=== PATIENT | female | born 1990 | race Caucasian/White ===

== ENCOUNTER 2021-12-07 09:31 | Emergency (ER) | payer OTHER ==
[2021-12-07 10:02] LABS: Absolute Neutrophil Ct (ANC) 6.84 x10^3/uL (1.4-6.9); Basophil (Absolute #) 0.02 x10^3/uL (0-0.4); Eosinophil (Absolute #) 0.09 x10^3/uL (0-0.5); Hemoglobin 13.8 g/dL (12.0-16.0); Lymphocyte (Absolute #) 1.58 x10^3/uL (1.0-4.6); Lymphocytes % 17.1 % (24.0-44.0); Mean Cell Volume 93.2 fL (78-100); Mean Corpuscular Hemoglobin 31.4 pg (26-32); Mean Corpuscular Hgb Concent. 33.7 g/dL (32-36); Mean Platelet Volume 9.7 fL (7.5-11.0); Monocyte (Absolute #) 0.66 x10^3/uL (0.0-1.3); Monocytes % 7.2 % (0.0-12.0); Neutrophil % 74.1 % (36.0-66.0); Platelet Count 249 x10^3/uL (150-450); Red Cell Distribution Width 11.7 % (11.5-14.0); White Blood Count 9.2 x10^3/uL (4.0-10.5)
[2021-12-07 10:26] LABS: INR 0.97 (0.8-3.0); PROTIME 10.3 SECONDS (9.4-12.5); PTT 29.1 SECONDS (25.1-36.5)
--- NOTE | 2021-12-07 10:26 | ERPHSYRPT ---
- History of Present Illness Source: patient Exam Limitations: no limitations Patient Subjective Stated Complaint: -9 weeks bleeding Triage Nursing Assessment: Patient ambulated back to ED and transferred self to bed. Patient A+O X3. Patient's skin pink, warm and dry. Patient complains of vaginal bleeding that started yesterday bright red blood. Patient is currently 9 weeks . Physician History: 31 yo wf 8wks w vaginal bleeding x1day. Bleeding is less than a period. Pt is pain free. She denies N/V/D/dysuria/hematuria/fever/cough. [id number] Timing/Duration: yesterday Activites at Onset: rest Quality: other (No pain) Onset Location: other (No pain) Pain Radiation: none Severity of Pain-Max: none Severity of Pain-Current: none Prior abdominal problems: none Sexual intercourse history: other (Pt is ) Modifying Factors: Improves With: nothing Associated Symptoms: , No abdominal pain, No fever, No chills, No diaphoresis, No nausea, No vomiting, No dysuria, No nocturia, No polyuria, No urinary frequency, No loss of bladder control, No lower back pain, No lumps, No mass, No swelling, No syncope, No vaginal discharge, No vaginal fluid leakage Allergies/Adverse Reactions: No Known Drug Allergies Allergy (Unverified 12/07/21 09:42) Home Medications: Mv-Mn/Iron/FA/Herbal/Digestive [ One Tablet] 1 tab PO DAILY 12/07/21 [History] Hx Influenza Vaccination/Date Given: No Hx Pneumococcal Vaccination/Date Given: No Travel Risk - International Travel Have you traveled outside of the country in past 3 weeks: No - Coronavirus Screening Are you exhibiting any of the following symptoms?: No - Vaccine Status Have you recieved a Covid-19 vaccination: No - Review of Systems Constitutional: No Symptoms Eyes: No Symptoms Ears, Nose, & Throat: No Symptoms Respiratory: No Symptoms Cardiac: No Symptoms Abdominal/Gastrointestinal: No Symptoms Genitourinary Symptoms: No Symptoms, Vaginal Bleeding Musculoskeletal: No Symptoms Skin: No Symptoms Neurological: No Symptoms Psychological: No Symptoms Endocrine: No Symptoms Hematologic/Lymphatic: No Symptoms Immunological/Allergic: No Symptoms - Past Medical History Pertinent Past Medical History: No Neurological History: No Pertinent History ENT History: No Pertinent History Cardiac History: No Pertinent History Respiratory History: No Pertinent History Musculoskeletal History: No Pertinent History GI Medical History: No Pertinent History History: No Pertinent History Psycho-Social History: No Pertinent History Female Reproductive Disorders: No Pertinent History - Past Surgical History Past Surgical History: Yes Neuro Surgical History: No Pertinent History Cardiac: No Pertinent History Respiratory: No Pertinent History Gastrointestinal: No Pertinent History Genitourinary: No Pertinent History Musculoskeletal: No Pertinent History Female Surgical History: Other Other Surgical History: Right tube removed. - Social History Smoking Status: Never smoker Exposure to second hand smoke: No Drug Use: none Patient Lives Alone: No - Female History Hx Last Menstrual Period: October 04 Hx Now: Yes Expected Date of Delivery: 07/26/22 - Nursing Vital Signs Nursing Vital Signs: Initial Vital Signs Temperature 97.6 F 12/07/21 09:44 Pulse Rate 96 H 12/07/21 09:44 Respiratory Rate 18 12/07/21 09:44 Blood Pressure 124/80 12/07/21 09:44 O2 Sat by Pulse Oximetry 99 12/07/21 09:44 Pain Scale Pain Intensity 0 - Physical Exam General Appearance: no apparent distress Eye Exam: PERRL/EOMI, eyes nml inspection Ears, Nose, Throat Exam: normal ENT inspection, TMs normal, pharynx normal, moist mucous membranes Neck Exam: normal inspection, non-tender, supple, full range of motion, No meningismus, No mass, No Brudzinski, No Kernig's Respiratory Exam: normal breath sounds, lungs clear, airway intact Cardiovascular Exam: regular rate/rhythm, normal heart sounds, normal peripheral pulses, capillary refill <2 sec, No murmur Gastrointestinal/Abdomen Exam: soft, normal bowel sounds, No tenderness Back Exam: normal inspection, normal range of motion, No CVA tenderness, No vertebral tenderness Extremity Exam: normal inspection, normal range of motion Neurologic Exam: alert, oriented x 3, cooperative, tie up worker II-XII nml as tested, no rmal mood/affect, nml cerebellar function, nml station & gait, sensation nml, No motor deficits, No sensory deficit Skin Exam: normal color, warm, dry Lymphatic Exam: No adenopathy SpO2 Interpretation: normal SpO2: 99 O2 Delivery: Room Air - Course Nursing assessment & vital signs reviewed: Yes - Radiology Ultrasound Exam OB Ultrasound: discussed w/radiologist (8wk fetus/No heart tones) Ordered Tests: Active Orders 24 hr Category Date Time Status OB <14 WKS 1ST GESTATION [US] Stat Exams 12/07/21 09:42 Completed CBC W DIFF Stat Lab 12/07/21 09:55 Completed HCG, Quantitative (Inhouse) Stat Lab 12/07/21 09:55 Completed PROTIME WITH INR Stat Lab 12/07/21 09:55 Completed PTT Stat Lab 12/07/21 09:55 Completed Lab/Rad Data: Laboratory Result Diagrams 12/07/21 09:55 Laboratory Results 12/07/21 12/07/21 12/07/21 Range/Units 09:55 09:55 09:55 WBC (4.0-10.5) x10^3/uL RBC (4.1-5.4) x10^6/uL Hgb (12.0-16.0) g/dL Hct (35-47) % MCV (78-100) fL MCH (26-32) pg MCHC (32-36) g/dL RDW (11.5-14.0) % Plt Count (150-450) x10^3/uL MPV (7.5-11.0) fL Gran % (36.0-66.0) % Immature Gran % (Auto) (0.00-0.4) % Nucleat RBC Rel Count (0.00-0.1) % Eos # (Auto) (0-0.5) x10^3/uL Immature Gran # (Auto) (0.00-0.03) x10^3u/L Absolute Lymphs (auto) (1.0-4.6) x10^3/uL Absolute Monos (auto) (0.0-1.3) x10^3/uL Absolute Nucleated RBC (0.00-0.01) x10^3u/L Lymphocytes % (24.0-44.0) % Monocytes % (0.0-12.0) % Eosinophils % (0.00-5.0) % Basophils % (0.0-0.4) % Absolute Granulocytes (1.4-6.9) x10^3/uL Basophils # (0-0.4) x10^3/uL PT 10.3 (9.4-12.5) SECONDS INR 0.97 (0.8-3.0) APTT 29.1 (25.1-36.5) SECONDS Beta HCG, Quant 76828 mIU/ml Rh Factor POSITIVE 12/07/21 Range/Units 09:55 WBC 9.2 (4.0-10.5) x10^3/uL RBC 4.40 (4.1-5.4) x10^6/uL Hgb 13.8 (12.0-16.0) g/dL Hct 41.0 (35-47) % MCV 93.2 (78-100) fL MCH 31.4 (26-32) pg MCHC 33.7 (32-36) g/dL RDW 11.7 (11.5-14.0) % Plt Count 249 (150-450) x10^3/uL MPV 9.7 (7.5-11.0) fL Gran % 74.1 H (36.0-66.0) % Immature Gran % (Auto) 0.4 (0.00-0.4) % Nucleat RBC Rel Count 0.0 (0.00-0.1) % Eos # (Auto) 0.09 (0-0.5) x10^3/uL Immature Gran # (Auto) 0.04 H (0.00-0.03) x10^3u/L Absolute Lymphs (auto) 1.58 (1.0-4.6) x10^3/uL Absolute Monos (auto) 0.66 (0.0-1.3) x10^3/uL Absolute Nucleated RBC 0.00 (0.00-0.01) x10^3u/L Lymphocytes % 17.1 L (24.0-44.0) % Monocytes % 7.2 (0.0-12.0) % Eosinophils % 1.0 (0.00-5.0) % Basophils % 0.2 (0.0-0.4) % Absolute Granulocytes 6.84 (1.4-6.9) x10^3/uL Basophils # 0.02 (0-0.4) x10^3/uL PT (9.4-12.5) SECONDS INR (0.8-3.0) APTT (25.1-36.5) SECONDS Beta HCG, Quant mIU/ml Rh Factor - Progress Progress Note: 12/07/21 10:53 Dr. Sage-D&C today at [facility] or wait to pass/Pt wants D&C today/[facility], not a transfer per Dr. Sage Counseled pt/family regarding: lab results, diagnosis, need for follow-up, rad results - Departure Departure Disposition: Home Clinical Impression: intrauterine Condition: Stable Critical Care Time: No Referrals: RIO PENA NP [Primary Care Provider] - Follow up/PCP as directed Instructions: Miscarriage (DC) Additional Instructions: [facility]
--- NOTE | 2021-12-07 10:37 | XRAY ---
Indication: Bleeding. Two-dimensional transvaginal early OB ultrasound performed. Comparison: None Single intrauterine gestational sac with presence of a single pole and yolk sac. Mean crown-rump length measures 1.65 cm corresponding to 8 weeks 0 days. No heart rate detected. No abnormal subchorionic fluid. Cervix is closed. Right ovary unremarkable. Left ovary not visualized. No suspicious adnexal mass or free fluid. Impression: Single intrauterine measuring 8 weeks 0 days. No heart tones concerning for demise.
[2021-12-07 11:10] VITALS: BP 122/82; PULSE 82
[2021-12-07 11:46] VITALS: O2SAT 99
== END 2021-12-07 11:08 | disposition home or self-care (01) ==
LOC: ED 09:31
DX: O02.1 Missed abortion (principal); Z28.310 Unvaccinated for COVID-19
CPT/HCPCS: 36415; 76801; 84702; 85025; 85610; 85730; 86901; 99283